=== PATIENT | female | born 1975 | race Caucasian/White ===

== ENCOUNTER 2018-02-15 10:54 | Emergency (ER) | payer BC, MEDICAID ==
[~2018-02-15] VITALS: Ht 154.9 cm; Wt 97.5 kg
[~2018-02-15 10:54] MED LIST: BUPR-160 PO; LORA-476 PO
[2018-02-15 11:00] VITALS: BP 127/81
--- NOTE | 2018-02-15 11:05 | NUR ---
pt ambulated to er bed 06
--- NOTE | 2018-02-15 11:07 | NUR ---
42/F BIB SELF WITH C/O N/V/D & HEADACHE , MID ABDOMINAL PAIN x 2 DAYS. HX: ANXIETY AND DM. MEDS: METFORMIN 500MG.PT STATED : N/V X3 EPISODES & DIARRHEA X 5 EPISODES ; GREENISH, WATERY X TODAY. PT ALSO C/O RIGHT UPPER CHEST PAIN X TODAY PAIN ON & OFF. TACHY HR 115 AT THIS TIME. SKIN IS PINK/WARM/DRY; AAOX4 WITH EVEN AND STEADY GAIT; LUNGS CLEAR BL; PT DENIES ANY FEVER OR COUGH AT THIS TIME; PATIENT STATES PAIN OF 8/10 AT THIS TIME. PATIENT POSITIONED FOR COMFORT; HOB ELEVATED; BEDRAILS UP X2; BED DOWN. ER MD MADE AWARE OF PT STATUS.
[2018-02-15] MEDS ORDERED: NACL 0.9% 1,000 ML IV ONE (11:10)
[2018-02-15] MEDS ORDERED: ONDANSETRON 4 MG/2 ML VIAL IVP ONE (11:10)
[2018-02-15 11:26] LABS: BASOPHILS % (AUTO) 0.2 % (0.0-2.0); EOSINOPHILS % (AUTO) 0.2 % (0.0-4.0); HEMATOCRIT 41.5 % (36-48); HEMOGLOBIN 13.2 g/dL (12.0-16.0); LYMPHOCYTES # (AUTO) 1.1 K/uL (2.5-16.5); MEAN CORPUSCULAR HEMOGLOBIN 28 pg (27-31); MEAN CORPUSCULAR HGB CONC 32 g/dL (33-37); MEAN CORPUSCULAR VOLUME 86.8 fL (80-94); MONOCYTES # (AUTO) 0.3 K/uL (0.8-1.0); MONOCYTES % (AUTO) 2.4 % (1.7-9.3); NEUTROPHILS # (AUTO) 10.4 K/uL (1.8-7.7); NEUTROPHILS % (AUTO) 88.2 % (42.2-75.2); PLATELET COUNT (AUTO) 327 K/uL (140-450); RED BLOOD CELL COUNT(AUTO) 4.78 MIL/uL (4.20-5.40); WHITE BLOOD COUNT (AUTO) 11.8 K/uL (4.8-10.8)
[2018-02-15 11:40] LABS: ANION GAP 12.7 (8-16); CREATININE 0.6 mg/dL (0.6-1.3); POTASSIUM 3.7 mmol/L (3.5-5.1)
[2018-02-15 11:46] LABS: ALBUMIN 3.4 g/dL (3.4-5.0); TOTAL BILIRUBIN 0.4 mg/dL (0.0-1.0)
--- NOTE | 2018-02-15 13:04 | NUR ---
Patient being evaluated by physician at bedside.
[2018-02-15] MEDS ORDERED: KETOROLAC 30 MG/ML VIAL IVP ONE (13:25)
[2018-02-15 13:55] VITALS: BP 115/59
--- NOTE | 2018-02-15 13:59 | NUR ---
Patient discharged with v/s stable. Written and verbal after care instructions given and explained. Patient alert, oriented and verbalized understanding of instructions. Ambulatory with steady gait. All questions addressed prior to discharge. ID band removed. Patient advised to follow up with PMD. Rx of ZOFRAN 4MG, TRAMADOL 50MG given. Patient educated on indication of medication including possible reaction and side effects. Opportunity to ask questions provided and answered.
== END 2018-02-15 13:59 | disposition home or self-care (01) ==
LOC: MED 10:54
DX: K52.9 Noninfective gastroenteritis and colitis, unspecified (principal); K21.9 Gastro-esophageal reflux disease without esophagitis
CPT/HCPCS: 36415; 80053; 81002; 81025; 85025; 96361; 96374; 96375; 99284; J1885; J2405